=== PATIENT | female | born 1990 | race Caucasian/White ===

== ENCOUNTER 2019-01-30 16:07 | Emergency (ER) | payer OTHER ==
[~2019-01-30] VITALS: Ht 165.1 cm; Wt 68.0 kg
[~2019-01-30 16:07] MED LIST: Z LAMICTAL; Z LAMOTRIGINE PO
--- OUTSIDE RECORDS SUMMARY | 2019-01-30 16:10 | XMS REPORT | Clinical Summary ---
Author Author [facility] [employer] Organization [facility] [employer] Address Unknown Phone Unavailable Care Team Providers Care Dairy Products Maker Name Role Phone Asked, No Pcp PCP Unavailable Allergies No Known Allergies Medications End Date Status Medication Sig Dispensed Refills Start Date Active LAMOTRIGINE ORAL Take 175 mg 3 by mouth 2 8 (two) times a day. 06/30/2018 Discontinued diphenoxylate Take by 0 HCl/atropine (LOMOTIL mouth. ORAL) 07/10/2018 Discontinued traMADol (ULTRAM) 50 mg Take 1 tablet 30 tablet 0 tablet (50 mg total) 8 by mouth every 4 (four) hours as needed for moderate pain for up to 30 days. 07/10/2018 Discontinued promethazine (PHENERGAN) Take 1 tablet 30 tablet 0 25 MG tablet (25 mg total) 8 by mouth every 6 (six) hours as needed for nausea or vomiting. 07/10/2018 Discontinued promethazine (PHENERGAN) Take 1 tablet 30 tablet 0 25 MG tablet (25 mg total) 8 by mouth every 6 (six) hours as needed for nausea or vomiting. 07/10/2018 Discontinued promethazine (PHENERGAN) Take 1 tablet 30 tablet 0 25 MG tablet (25 mg total) 8 by mouth every 6 (six) hours as needed for nausea or vomiting. 07/10/2018 Discontinued promethazine (PHENERGAN) Take 1 tablet 30 tablet 0 25 MG tablet (25 mg total) 8 by mouth every 6 (six) hours as needed for nausea or vomiting. 07/10/2018 Discontinued promethazine (PHENERGAN) Take 1 tablet 30 tablet 0 25 MG tablet (25 mg total) 8 by mouth every 6 (six) hours as needed for nausea or vomiting. 07/15/2018 Discontinued promethazine (PHENERGAN) Take 1 tablet 30 tablet 0 25 MG tablet (25 mg total) 8 by mouth every 6 (six) hours as needed for nausea or vomiting. 07/10/2018 Discontinued traMADol (ULTRAM) 50 mg Take 1 tablet 30 tablet 0 tablet (50 mg total) 8 by mouth every 4 (four) hours as needed for moderate pain for up to 30 days. 08/10/2018 traMADol (ULTRAM) 50 mg Take 1 tablet 30 tablet 0 tablet (50 mg total) 8 by mouth every 4 (four) hours as needed for moderate pain for up to 30 days. Active Problems Problem Noted Date Aftercare following surgery 08/19/2018 Aftercare 07/31/2018 Ganglion of left wrist 05/27/2018 Encounters Care Team Description Date Type Specialty Ede Edwards MD Aftercare following surgery (Primary Dx); Ganglion of left wrist 09/30/2018 Office Visit Orthopedic Surgery Ede Edwards MD Ganglion of left wrist (Primary Dx); Aftercare following surgery 08/19/2018 Office Visit Orthopedic Surgery Ede Edwards MD Frazer-Hall, Audrey, [place] Ganglion of left wrist (Primary Dx); Aftercare 07/31/2018 Office Visit Orthopedic Surgery Ede Edwards MD Ganglion of left wrist (Primary Dx); Aftercare following surgery 07/15/2018 Office Visit Orthopedic Surgery Jumana Fernando PA 07/14/2018 Telephone Orthopedic Surgery Jumana Fernando PA 07/14/2018 Telephone Orthopedic Surgery Lyndsey Ugalde APRN 07/11/2018 Anesthesia Orthopedic Surgery Event Ede Edwards MD EXCISION, GANGLION, WRIST 07/11/2018 Surgery Orthopedic Surgery Ede Edwards MD Ganglion of left wrist 07/11/2018 Hospital Orthopedic Surgery Encounter Jumana Fernando PA Ganglion of left wrist (Primary Dx) 07/10/2018 Orders Only Orthopedic Surgery Jumana Fernando PA Ganglion of left wrist (Primary Dx) 07/09/2018 Telephone Orthopedic Surgery Ede Edwards MD Preop examination (Primary Dx) 06/30/2018 Pre-Admit Pre-Admission Testing Testing Appointment Ede Edwards MD Ganglion of left wrist (Primary Dx) 06/30/2018 Office Visit Orthopedic Surgery Zena Jaeger MA Ganglion of left wrist (Primary Dx) 06/17/2018 Orders Only Orthopedic Surgery Ede Edwards MD Ganglion of left wrist (Primary Dx) 05/27/2018 Office Visit Orthopedic Surgery after 01/29/2018 Social History Date Tobacco Use Types Packs/Day Years Used Never Smoker Smokeless Tobacco: Never Used Alcohol Use Drinks/Week oz/Week Comments Yes social Sex Assigned at Date Recorded Not on file Industry Job Start Date Occupation Not on file Not on file Not on file Travel End Travel History Travel Start No recent travel history available. Last Filed Vital Signs Time Taken Vital Sign Reading 07/11/2018 12:25 PM [employer]ENCE SUPER[employer] Blood Pressure 115/86 07/11/2018 12:25 PM [employer]ENCE SUPER[employer] Pulse 86 07/11/2018 12:25 PM [employer]ENCE SUPER[employer] Temperature 36.9 C (98.5 F) 07/11/2018 12:25 PM [employer]ENCE SUPER[employer] Respiratory Rate 18 07/11/2018 12:25 PM [employer]ENCE SUPER[employer] Oxygen Saturation 99% - Inhaled Oxygen - Concentration 07/11/2018 9:04 AM FENCE SUPERVISOR Weight 49.6 kg (109 lb 7 oz) 07/11/2018 9:04 AM FENCE SUPERVIS[employer] Height 165.1 cm (5' 5") 07/11/2018 9:04 AM FENCE SUPERVISOR Body Mass Index 18.21 Plan of Treatment Health Maintenance Due Date Last Done Comments INFLUENZA VACCINE 04/02/2019 Procedures Comments Procedure Name Priority Date/Time Associated Diagnosis ORTHOPEDIC INJURY Routine 07/15/2018 Ganglion of left wrist TREATMENT 1:20 PM FENCE SUPERVISOR Aftercare following surgery SURGICAL PATHOLOGY Routine 07/11/2018 REQUEST 10:01 AM FENCE SUPERVISOR FL AN ELECTIVE Routine 07/11/2018 SUPRAGLOTTIC AIRWAY 9:33 AM FENCE SUPERVISOR Procedure Note - Shilo Bean - 07/11/2018 9:33 AM FENCE SUPERVISOR Airway Date/Time: 07/11/2018 9:19 AM Performed by: WILMER LEWIS Authorized by: WILMER LEWIS Location: OR Urgency: Elective Difficult Airway: No Anesthesio logist: WILMER LEWIS Resident/C RNA/AA: JUDY TORRES JR. Other Anesthesia Staff: SHILO BEAN Performed by: other anesthesia staff Preoxygena roula with 100% O2: Yes C-spine Precaution s Maintained Throughout : No Mask Ventilatio n: Not attempted Final Airway Type: Supraglott ic airway Final LMA: I-Gel LMA Size: 4 Number of Attempts at Approach: 1 EXCISION, GANGLION, WRIST 07/11/2018 Ganglion of left wrist 8:30 AM FENCE SUPERVISOR ESTIMATED GFR Routine 06/30/2018 5:21 PM CDT HCG QUALITATIVE, SERUM Routine 06/30/2018 Preop examination SCREEN 5:21 PM CDT BASIC METABOLIC PANEL Routine 06/30/2018 Preop examination 5:21 PM CDT XR WRIST 3+ VW LEFT Routine 05/27/2018 Ganglion of left wrist 1:51 PM CDT after 01/29/2018 Results * Orthopedic Injury Treatment (07/15/2018 1:20 PM FENCE SUPERVISOR) Narrative Performed At Ede Edwards MD 07/15/20181:57 PM Orthopedic Injury Treatment Date/Time: 07/15/2018 1:55 PM Performed by: Ede Edwards MD Authorized by: Ede Edwards MD Consent given by: patient Site marked: site marked Injury Location details: left wrist Pre-procedure assessment Distal perfusion: normal Distal sensation: normal Range of motion: reduced Procedure Manipulation performed? no manipulation performed Anesthetics: local anesthesia not used Immobilization: splint Splint/Brace type: short arm Supplies used: cotton padding and Ortho-Glass Post-procedure assessment Distal perfusion: normal Distal sensation: normal Patient tolerance: patient tolerated the procedure well with no immediate complications * Surgical pathology request (07/11/2018 10:01 AM FENCE SUPERVISOR) Pathologist [facility] DEPARTMENT OF PATHOLOGY AND GENOMIC MEDICINE Surgical See link below for PDF Lab [facility] DEPARTMENT pathology Report OF PATHOLOGY report AND GENOMIC MEDICINE Result status This is Final Report for [facility] DEPARTMENT [id number] OF PATHOLOGY AND GENOMIC MEDICINE Specimen Performing Organization Address City/State/Zipcode Phone Number [facility] DEPARTMENT OF [address] [place] [address] PATHOLOGY AND GENOMIC MEDICINE * Estimated GFR (06/30/2018 5:21 PM CDT) Pathologist [facility] Estimated GFR 86 mL/min/1.73 m2 [facility] DEPARTMENT Comment: OF PATHOLOGY CatergoryUnitsInte AND GENOMIC rpretation MEDICINE G1 >=90 Normal or high G2 60-89Mildly decreased [id number] Mildly to moderately decreased [id number] Moderately to severely decreased G4 15-29Severely decreased G5 <15Kidney failure The eGFR was calculated using the Chronic Kidney Disease Epidemiology Collaboration (CKD-EPI) equation. Interpretation is based on recommendations of the National Kidney Foundation-Kidney Disease Outcomes Quality Initiative (NKF-KDOQI) published in 2014. Specimen Plasma specimen Performing Organization Address City/[facility]/[place] [address] PATHOLOGY [facility] * hCG qualitative, serum screen (06/30/2018 5:21 PM CDT) [facility] hCG NegativeComment: Sensitivity [facility] DEPARTMENT qualitative, of HCG test: 25 mIU/mL OF [facility] serum AND [facility] Specimen Blood Performing Organization Address [facility] [place] [address] PATHOLOGY [facility] * Basic metabolic panel (06/30/2018 5:21 PM CDT) [facility] Sodium 141 135 - 148 mEq/L [facility] DEPARTMENT OF PATHOLOGY AND GENOMIC MEDICINE Potassium 3.8 3.5 - 5.0 mEq/L [facility] DEPARTMENT OF PATHOLOGY AND GENOMIC MEDICINE Chloride 102 98 - 112 mEq/L [facility] DEPARTMENT OF PATHOLOGY AND GENOMIC MEDICINE CO2 27 24 - 31 mEq/L [facility] DEPARTMENT OF PATHOLOGY AND GENOMIC MEDICINE Anion gap 12@ANIO 7 - 15 mEq/L [facility] DEPARTMENT OF PATHOLOGY AND GENOMIC MEDICINE BUN 15 6 - 20 mg/dL [facility] DEPARTMENT OF PATHOLOGY AND GENOMIC MEDICINE Creatinine 1.03 (H) 0.50 - 0.90 mg/dL [facility] DEPARTMENT OF PATHOLOGY AND GENOMIC MEDICINE Glucose 88 65 - 99 mg/dL [facility] DEPARTMENT OF PATHOLOGY AND GENOMIC MEDICINE Calcium 10.0 8.3 - 10.2 mg/dL [facility] DEPARTMENT OF PATHOLOGY AND GENOMIC MEDICINE Specimen Plasma specimen Performing Organization Address [facility] [place] [address] PATHOLOGY AND GENOMIC [facility] * XR Wrist 3+ Vw Left (05/27/2018 1:51 PM CDT) Specimen Narrative Performed At [facility], lateral, oblique x-rays are done of the left wrist.These x-rays demonstrate no evidence for fracture, dislocation.There is a soft tissue density noted dorsally. Performing Organization Address City/State/Zipcode Phone Number [facility] [address] [place] [address] after 01/29/2018 Insurance Type Payer Benefit Subscriber ID Effective Phone Address Plan / Dates Group HMO/PPO [facility] xxxxxxxxx [id number] THCARE resent CHOICE/CHO ICE + Advance Directives Patient has advance care planning documents on file. For more information, petar sawyer contact: Ming Ansari [address] [place] [address]
--- OUTSIDE RECORDS SUMMARY | 2019-01-30 16:10 | XMS REPORT ---
Author Author [facility] Address Unknown Phone Unavailable Care Team Providers Care Pulp House Supervisor Name Role Phone Unavailable Unavailable Problems This patient has no known problems. Allergies, Adverse Reactions, Alerts This patient has no known allergies or adverse reactions. Medications This patient has no known medications. Encounters Start Date/Time End Date/Time Encounter Type Admission Type Attending [facility] Facility Care Department Encounter ID 2018-12-25 01:51:00 2018-12-25 01:51:00 Emergency E [facility] [id number]
--- NOTE | 2019-01-30 16:27 | NUR ---
BILATERAL BPS RT 189/113 LEFT 176/112
--- NOTE | 2019-01-30 16:27 | NUR ---
LAST SZ 10 YRS AGO. SZ FROM [facility]. COMPLIANT WITH MEDS.
[2019-01-30] MEDS ORDERED: HYDRALAZINE HCL 20 MG/ML VIAL IV ONE (16:29)
[2019-01-30] MEDS ORDERED: HYDRALAZINE HCL 20 MG/ML VIAL ONE (16:38)
--- NOTE | 2019-01-30 16:42 | NUR ---
MONITOR ON WALL CHECKED BILATERAL BP'S PRIOR TO MEDICATION LEFT 132/68 RT 136/69 NO PAIN MD NOTIFIED AND HYDRALAZINE HELD. PT TO CT
--- NOTE | 2019-01-30 17:50 | NUR ---
UPDATED PT PLAN OF CARE.
[2019-01-30] MEDS ORDERED: HYDROCODONE/APAP 5MG-325MG TAB PO ONE (18:15)
--- NOTE | 2019-01-30 18:24 | Diagnostic Imaging Report ---
History: Dizziness Comparison studies: None Technique: Axial images were obtained from the skull base to the vertex. Coronal and sagittal reconstructions obtained from the axial data. Dose modulation, iterative reconstruction, and/or weight based adjustment of the mA/kV was utilized to reduce the radiation dose to as low as reasonably achievable. Findings: Scalp/skull: No abnormalities. No fractures, blastic or lytic lesions. Extra-axial spaces: No masses. No fluid collections. Brain sulci: Appropriate for age. Ventricles: Normal in size and configuration. No hydrocephalus. Parenchyma: No abnormal densities. No masses, hemorrhage, acute or chronic cortical vascular insults. Sellar/suprasellar region: No abnormalities Craniocervical junction: Patent foramen magnum. No Chiari one malformation. IMPRESSION: No abnormalities . Signed by: DR Coleman Almaraz M.D. on 01/30/2019 6:20 PM
== END 2019-01-30 18:40 | disposition home or self-care (01) ==
LOC: FSED 16:07
DX: R55 Syncope and collapse (principal); R42 Dizziness and giddiness; H81.13 Benign paroxysmal vertigo, bilateral
CPT/HCPCS: 70450; 80053; 81003; 81025; 84484; 85025; 99284; J0360

== ENCOUNTER → 2019-10-12 | Outpatient (CLI) | payer OTHER ==
[2019-07-24 09:51] LABS: BLOOD UREA NITROGEN 10 mg/dL (7-26); BUN/CREATININE RATIO 11 (6-25); CREATININE, SERUM 0.89 mg/dL (0.57-1.11); EST GLOMERULAR FILTRATION RATE > 60 ML/MIN (60-)
[~2019-10-12] MED LIST changes: +GADOBENATE DIMEGLUMINE 0 ML IV ONE; +GADOBENATE DIMEGLUMINE 1 ML IV ONE
[2019-10-12 15:22] LABS: BLOOD UREA NITROGEN 13 mg/dL (7-26); BUN/CREATININE RATIO 14 (6-25); CREATININE, SERUM 0.95 mg/dL (0.57-1.11); EST GLOMERULAR FILTRATION RATE > 60 ML/MIN (60-)
--- NOTE | 2019-10-12 17:59 | Diagnostic Imaging Report ---
EXAMINATION: MRI of the brain with and without contrast. HISTORY: Epilepsy, headaches COMPARISON: None TECHNIQUE: Pre-contrast: Sagittal T1; axial T1-IR, MPGR, DWI, FLAIR; Post-contrast: axial, sagittal, and coronal T1 fat sat. Thin section coronals of the temporal lobes: FLAIR, T2. Intravenous contrast: 17 mL of MultiHance FINDINGS: Mass: None. No abnormal enhancement. Enhancement: No abnormal enhancement of the brain or meninges. Encephalomalacia: No areas. Ischemic changes: None. Calcification/iron: No abnormal deposits. Hippocampi: No atrophy or gliosis. Normal fornices. Vascular: No obvious vascular malformation. Normal flow voids in major arteries and veins.[ Robert matter: No cortical migration anomalies. Other: Brain volume: Normal for age. Ventricles: No hydrocephalus or displacement. Foramen Magnum: Unremarkable. Sella: Unremarkable. Skull: No focal lesions. Sinuses/mastoids: No significant inflammatory disease. IMPRESSION: No intracranial abnormality, particularly no mass, mesial temporal sclerosis or migrational abnormalities. Signed by: Dr. Brandi Patel M.D. on 10/12/2019 5:57 PM
== END ==
LOC: MRI 07-24 08:53
PROVIDERS: ATTEND Psychiatry & Neurology Clinical Neurophysiology
DX: G40.309 Generalized idiopathic epilepsy and epileptic syndromes, not intractable, without status epilepticus (principal); G44.52 New daily persistent headache (NDPH)
CPT/HCPCS: 36415 ×2; 70553; 82565 ×2; 84520 ×2; A9577

== ENCOUNTER 2020-02-22 11:39 | Emergency (ER) | payer OTHER ==
[~2020-02-22] VITALS: Ht 165.1 cm; Wt 83.5 kg
[~2020-02-22 11:39] MED LIST changes: -GADOBENATE DIMEGLUMINE 0 ML IV ONE; -GADOBENATE DIMEGLUMINE 1 ML IV ONE
--- NOTE | 2020-02-22 13:22 | Diagnostic Imaging Report ---
X-ray chest PA and lateral History: Postop fever for one day. Status post breast reduction surgery 3 days ago and unable to raise the arms for lateral Comparison: None Findings: Central airways unremarkable. Heart size borderline normal. No pleural effusion. No pneumothorax. No focal lung disease. Visualized skeleton unremarkable. Upper abdomen unremarkable. Bilateral breast J.P. drains consistent with the history. Impression: No acute cardiopulmonary disease. Signed by: Darren Monreal MD on 02/22/2020 1:19 PM
--- NOTE | 2020-02-22 13:27 | Emergency Department Note ---
History of Present Illnes History of Present Illness Chief Complaint: fever/cough History of Present Illness This is a 29 year old female. pod#3 s/p breast reduction Historian: Patient Arrival Mode: Car History limited by: condition of the patient (normal) Store Planner Required: No Onset (how long ago): day(s) (1) Location: n/a Quality: n/a Radiation: Denies non-radiation Severity: moderate Duration (how long): day(s) (1) Timing of current episode: intermittent Progression: resolved Context: Reports recent surgery (pod#3 s/p breast reduction) Relieving factors: none Exacerbating factors: none Associated symptoms: Reports cough, Reports fever/chills Treatments prior to arrival: none Past Medical/Family History Physician Review I have reviewed the patient's past medical and family history. Any updates have been documented here. Past Medical History Recent Fever: No Clinical Suspicion of Infectio: No New/Unexplained Change in Ment: No Past Medical History: Seizure Disorder Other Medical History: RT OVARIAN CYST HX OF CONSTIPATION Past Surgical History: None Social History Smoking Cessation: Never Smoker Counseling Performed: No Any Illegal Drug Use: No TB Exposure/Symptoms: No Physically hurt or threatened: No Family History Family history of heart diseas: No Other Last Tetanus: UTD Any Pre-Existing Lines (PICC,: No Is patient up to date on immun: No Review of Systems Review of Systems Constitutional: Reports as per HPI EENTM: Reports no symptoms Cardiovascular: Reports no symptoms Respiratory: Reports as per HPI Gastrointestinal: Reports no symptoms Genitourinary: Reports no symptoms Musculoskeletal: Reports no symptoms Integumentary: Reports no symptoms Neurological: Reports no symptoms Psychological: Reports no symptoms Endocrine: Reports no symptoms Review of other systems: All other systems negative Physical Exam Related Data Allergies: Coded Allergies: No Known Allergies (Unverified , 03/12/12) Vital signs reviewed: Yes Physical Exam CONSTITUTIONAL Constitutional: Present well-developed, Present well-nourished HENT HENT: Present normocephalic, Present atraumatic, Present oropharynx clear/ moist, Present nose normal HENT L/R: Present left ext ear normal, Present right ext ear normal EYES Eyes: Reports PERRL, Reports conjunctivae normal NECK Neck: Present ROM normal, Present supple PULMONARY Pulmonary: Present effort normal, Present breath sounds normal CARDIOVASCULAR Cardiovascular: Present regular rhythm, Present heart sounds normal, Present capillary refill normal, Present normal rate GASTROINTESTINAL Abdominal: Present soft, Present nontender, Present bowel sounds normal GENITOURINARY Genitourinary: Present exam deferred SKIN Skin: Present warm, Present dry MUSCULOSKELETAL Musculoskeletal: Present ROM normal NEUROLOGICAL Neurological: Present alert, Present oriented x 3, Present no gross motor or sensory deficits PSYCHOLOGICAL Psychological: Present mood/affect normal, Present judgement normal Results Imaging Imaging results reviewed: Yes Impressions [place] [id number] Patient Name: KYUNG PETERSON MR #: [id number] : 1990 Age/Sex: 29/F Req #: [id number] Adm Physician: Ordered by: ZOILA FELICIANO Report #: [id number] Location: [facility] Room/Bed: Procedure: [id number] HOPD/CXR 2 VIEW - HOPD Exam Date: 02/22/20 Exam Time: 1255 REPORT STATUS: Signed X-ray chest PA and lateral History: Postop fever for one day. Status post breast reduction surgery 3 days ago and unable to raise the arms for lateral Comparison: None Findings: Central airways unremarkable. Heart size borderline normal. No pleural effusion. No pneumothorax. No focal lung disease. Visualized skeleton unremarkable. Upper abdomen unremarkable. Bilateral breast J.P. drains consistent with the history. Impression: No acute cardiopulmonary disease. Signed by: Danielito Hall MD on 02/22/2020 1:19 PM Dictated By: DANIELITO HALL MD 18 Transcribed By: GAY on 02/22/201318 COPY TO: ZOILA FELICIANO~ Assessment & Plan Medical Decision Making MDM take rxed med. f/u with surgeon Assessment & Plan Final Impression: (1) Acute bronchitis (2) Postoperative fever Depart Disposition: HOME, SELF-custodial Meds Active Scripts Cefdinir (OMNICEF) 300 Mg Capsule, 300 MG PO Q12H, #20 CAP Prov:ZOILA FELICIANO 02/22/20 Reported Medications Lamotrigine (Lamotrigine) 25 Mg Tablet, 25 MG PO QPM 03/12/12 Lamotrigine (Lamotrigine) 100 Mg Tablet, 100 MG PO BID 03/12/12 ZOILA FELICIANO Feb 22, 2020 13:27
[2020-02-22] MEDS ORDERED: CEFDINIR300 MG PO (13:33)
[2020-02-22 14:25] VITALS: BP 107/64
== END 2020-02-22 14:27 | disposition home or self-care (01) ==
LOC: FSED 11:39
DX: R50.82 Postprocedural fever (principal); R05 Cough; J20.9 Acute bronchitis, unspecified; I10 Essential (primary) hypertension; G40.909 Epilepsy, unspecified, not intractable, without status epilepticus
CPT/HCPCS: 71046; 99283

== ENCOUNTER → 2021-11-13 | Outpatient (CLI) | payer BC, OTHER ==
[~2021-11-13] MED LIST changes: +CEFDINIR300 MG PO
== END ==
LOC: RAD 11:30
PROVIDERS: ATTEND Internal Medicine
DX: R51.9 Headache, unspecified (principal); Z87.828 Personal history of other (healed) physical injury and trauma
CPT/HCPCS: 70450